=== PATIENT | female | born 1940 | race Caucasian/White ===

== ENCOUNTER 2018-10-10 08:02 | Outpatient (CLI) | payer OTHER ==
[2018-10-10 08:09] LABS: INR 1.8 (0.8-1.2); PROTHROMBIN TIME 17.7 SECS (9.5-12.5)
[2018-10-10 08:12] LABS: BILIRUBIN,URINE NEGATIVE (NEGATIVE); BLOOD, URINE TRACE (NEGATIVE); CLARITY/URINE CLOUDY (CLEAR); COLOR,URINE YELLOW (YELLOW); GLUCOSE,URINE NEGATIVE (NEGATIVE); KETONES,URINE NEGATIVE (NEGATIVE); PH,URINE 6.5 (5.0-8.0); PROTEIN URINE NEGATIVE (NEGATIVE)
[2018-10-10 08:13] LABS: LEUKOCYTE ESTERASE ,URINE 3+ (NEGATIVE); NITRITE, URINE NEGATIVE (NEGATIVE); UROBILINOGEN,URINE 0.2 (0.2-1.0)
[2018-10-10 08:14] LABS: BACTERIA,URINE MODERATE /HPF (None Seen); WBC,URINE 50-80 /HPF (0-3)
[2018-10-10 08:15] LABS: MUCUS,URINE 1+ /LPF (None Seen); URINE AMORPHOUS URATE 2+ /HPF (None Seen)
== END 2018-10-10 20:28 | disposition home or self-care (01) ==
LOC: SLB 08:02
PROVIDERS: ATTEND Internal Medicine Cardiovascular Disease
DX: N39.0 Urinary tract infection, site not specified (principal); I82.409 Acute embolism and thrombosis of unspecified deep veins of unspecified lower extremity
CPT/HCPCS: 36415; 81000-TC; 85610-TC; 87086